=== PATIENT | female | born 1985 | race Caucasian/White ===

== ENCOUNTER 2020-12-14 19:59 | Emergency (ER) | payer SELFPAY ==
[~2020-12-14] VITALS: Ht 157.5 cm; Wt 69.0 kg
[2020-12-14 20:16] VITALS: BP 130/79
[2020-12-14 20:47] LABS: MEAN CORPUSCULAR HEMOGLOBIN 30.9 pg (27.0-34.8); MEAN CORPUSCULAR HGB CONC 33.7 g/dL (32.4-35.8); PLATELET COUNT 330 x10^3/uL (130-400); RED BLOOD COUNT 4.46 x10^6/uL (3.82-5.3); RED CELL DISTRIBUTION WIDTH 13.6 % (9.6-15.2)
[2020-12-14 20:56] LABS: ALBUMIN 3.5 g/dL (3.4-5.0); ANION GAP 3 mmol/L (5-15); CALCIUM 8.9 mg/dL (8.5-10.1); CHLORIDE 109 mmol/L (98-107)
[2020-12-14 21:03] LABS: CREATININE 0.73 mg/dL (0.55-1.02)
[2020-12-14 21:23] LABS: BAND#(MANUAL) 0.06 x10^3/uL; BANDS%(MANUAL) 1 % (0-7); EOS#(MANUAL) 0.24 x10^3/uL (0.0-0.4); EOS% (MANUAL) 4 % (1-7); LYMPH#(MANUAL) 3.48 x10^3/uL (1-3.4); LYMPHS% (MANUAL) 58 % (22-44); MONOS#(MANUAL) 0.36 x10^3/uL (0.3-2.7); MONOS% (MANUAL) 6 % (2-9); REACTIVE LYMPHS # (MANUAL) 0.24 x10^3/uL (0-0); REACTIVE LYMPHS % (MANUAL) 4 % (0-0); SEG#(MANUAL) 1.62 x10^3/uL (1.8-6.8); SEGS% (MANUAL) 27 % (42-75)
[2020-12-14 21:24] LABS: <PLATELET ESTIMATE> ADEQUATE; ANISOCYTOSIS 1+; LARGE PLATELETS 1+
[2020-12-14 22:33] LABS: MICROSCOPIC INDICATED
--- NOTE | 2020-12-14 23:28 | NUR ---
PT CALLED FOR ROOM. NA X 1
--- NOTE | 2020-12-15 00:09 | NUR ---
NA X 2
--- NOTE | 2020-12-15 00:49 | NUR ---
Brant riley in [facility] - 12/15/20 at 0050 by RODRIGO NA X 1
--- NOTE | 2020-12-15 00:50 | NUR ---
NA X 3
== END 2020-12-15 00:51 | disposition left against medical advice (07) ==
LOC: ED 20:20
DX: R10.9 Unspecified abdominal pain (principal); R11.2 Nausea with vomiting, unspecified
CPT/HCPCS: 36415; 80048; 81001; 82040; 84703; 85025; 87077; 87086; 99283